=== PATIENT | female | born 1995 | race Caucasian/White ===

== ENCOUNTER 2018-06-28 23:04 | Inpatient (IN) | payer OTHER ==
[~2018-06-28] VITALS: Ht 162.6 cm; Wt 51.3 kg
[2018-06-28] MEDS ORDERED: HYDROMORPHONE 1 MG/1 ML DISP.SYRIN IV ONE (23:45)
[2018-06-28] MEDS ORDERED: ONDANSETRON 4 MG/2 ML VIAL IV ONE (23:45)
[2018-06-28] MEDS ORDERED: HYDROMORPHONE 1 MG/1 ML DISP.SYRIN ONE (23:48)
[2018-06-28] MEDS ORDERED: ONDANSETRON 4 MG/2 ML VIAL ONE (23:49)
[2018-06-28 23:57] LABS: BASOPHILS % (AUTO) 0.4 % (0.0-2.0); EOSINOPHILS # (AUTO) 0.1 K/uL (0.0-0.7); EOSINOPHILS % (AUTO) 1.3 % (0.0-7.0); HEMATOCRIT 36.8 % (31.2-41.9); HEMOGLOBIN 12.1 g/dL (10.9-14.3); LYMPHOCYTES # (AUTO) 1.4 K/uL (20.0-40.0); LYMPHOCYTES % (AUTO) 19.8 % (20.5-51.5); MEAN CORPUSCULAR HEMOGLOBIN 24.9 uug (24.7-32.8); MEAN CORPUSCULAR HGB CONC 33 g/dL (32.3-35.6); MEAN CORPUSCULAR VOLUME 75.7 fL (75.5-95.3); MONOCYTES # (AUTO) 0.7 K/uL (2.0-10.0); MONOCYTES % (AUTO) 9.4 % (0.0-11.0); NEUTROPHILS # (AUTO) 4.9 K/uL (1.8-8.9); NEUTROPHILS % (AUTO) 69.1 % (38.5-71.5); PLATELET COUNT (AUTO) 279 K/uL (179-408); RED BLOOD CELL COUNT(AUTO) 4.86 MIL/uL (3.63-4.92)
[2018-06-29 00:05] LABS: BILIRUBIN,DIRECT 0.1 mg/dL (0.0-0.2); BILIRUBIN,TOTAL 0.2 mg/dL (0.2-1.0); CREATININE 0.8 mg/dL (0.6-1.3); POTASSIUM 3.2 mmol/L (3.5-5.1); TOTAL PROTEIN, SERUM 7.5 g/dL (6.4-8.2)
[2018-06-29] MEDS ORDERED: IOHEXOL 300MG/ML 100 ML INFUS..BTL ONE (00:12)
[2018-06-29] MEDS ORDERED: SWABABLE VALVE TRANSFER SET EA MC ONE (00:12)
[2018-06-29] MEDS ORDERED: IV NORMAL SALINE 250 ML IV ONE (00:12)
[2018-06-29] MEDS ORDERED: DICYCLOMINE HCL LIQ 10 MG/5 ML UDC PO ONE (00:30)
[2018-06-29] MEDS ORDERED: MAG HYDROX/AL HYDROX/SIMETH 30 ML LIQUID UDC PO ONE (00:30)
[2018-06-29] MEDS ORDERED: FAMOTIDINE. 20 MG/2 ML VIAL IV ONE ×2 (00:30→00:41)
[2018-06-29] MEDS ORDERED: LIDOCAINE VISCUS 2% 15 ML UDC MM ONE (00:30)
[2018-06-29] MEDS ORDERED: DICYCLOMINE HCL LIQ 10 MG/5 ML UDC ONE (00:41)
[2018-06-29] MEDS ORDERED: MAG HYDROX/AL HYDROX/SIMETH 30 ML LIQUID UDC ONE (00:41)
[2018-06-29] MEDS ORDERED: LIDOCAINE VISCUS 2% 15 ML UDC ONE (00:41)
[2018-06-29] MEDS ORDERED: HYDROMORPHONE 1 MG/1 ML DISP.SYRIN ONE (00:42)
[2018-06-29] MEDS ORDERED: POTASSIUM CHLORIDE 20 MEQ TAB.PRT.SR PO ONE (00:45)
[2018-06-29] MEDS ORDERED: HYDROMORPHONE 1 MG/1 ML DISP.SYRIN IV ONE (00:45)
[2018-06-29 01:51] LABS: *BILIRUBIN,URIN NEGATIVE (NEGATIVE); *BLOOD, URINE NEGATIVE (NEGATIVE); *CLARITY,URINE CLEAR (CLEAR); *COLOR,URINE YELLOW (YELLOW); *KETONES,URINE NEGATIVE (NEGATIVE); *UROBILINOGEN,URINE 0.2 E.U./dl (NORMAL); LEUKOCYTE ESTERASE ,URINE NEGATIVE (NEGATIVE); NITRITE, URINE NEGATIVE (NEGATIVE); UGLUCOSE NEGATIVE (NEGATIVE)
[2018-06-29] MEDS ORDERED: IV D5W-0.45% NS +20 KCL 1,000 ML IV ONE (02:02)
[2018-06-29 02:08] LABS: BACTERIA,URINE MANY /HPF (NONE SEEN); RBC,URINE 0-3 /HPF (0-3); SQUAMOUS EPITHELIAL CELL,UR MANY /HPF (NONE SEEN); WBC,URINE 0-3 /HPF (0-3)
[2018-06-29] MEDS ORDERED: HYDROCODONE/APAP 5-325MG TABLET PO PRN (02:30)
[2018-06-29] MEDS ORDERED: MAGNESIUM HYDROXIDE 30 ML LIQUID UDC PO PRN (02:30)
[2018-06-29] MEDS ORDERED: ACETAMINOPHEN 325 MG TABLET PO PRN (02:30)
[2018-06-29] MEDS ORDERED: Z GUARD REMEDY PASTE 57 GM TUBE TOP PRN (02:30)
[2018-06-29] MEDS ORDERED: HYDR200T4 PO (02:31)
[2018-06-29] MEDS ORDERED: ARIP20TA4 PO (02:31)
[2018-06-29] MEDS ORDERED: CYPR4TAB44 PO (02:31)
[2018-06-29] MEDS ORDERED: PANT40TA2 PO (02:31)
[2018-06-29] MEDS ORDERED: GABA-534 PO (02:31)
[2018-06-29] MEDS ORDERED: SUCR1TAB PO (02:31)
[2018-06-29] MEDS ORDERED: FLUO40CA8 PO (02:31)
[2018-06-29] MEDS ORDERED: METR500T PO (02:31)
[2018-06-29] MEDS ORDERED: BUSP10TA3 PO (02:31)
[2018-06-29] MEDS ORDERED: LAMO25TA5 PO (02:31)
[2018-06-29] MEDS ORDERED: IV NS 1000 ML 1,000 ML IV PRN (03:00)
[2018-06-29 03:30] VITALS: BP 113/78
[2018-06-29] MEDS: MORPHINE SULFATE 4 MG/1 ML DISP.SYRIN IV PRN ×3 (03:41→22:28)
[2018-06-29 06:50] LABS: BASOPHILS % (AUTO) 1.1 % (0.0-2.0); EOSINOPHILS # (AUTO) 0.1 K/uL (0.0-0.7); EOSINOPHILS % (AUTO) 1.8 % (0.0-7.0); HEMATOCRIT 35.8 % (31.2-41.9); HEMOGLOBIN 11.9 g/dL (10.9-14.3); LYMPHOCYTES # (AUTO) 1.5 K/uL (20.0-40.0); MEAN CORPUSCULAR HEMOGLOBIN 25.1 uug (24.7-32.8); MEAN CORPUSCULAR HGB CONC 33 g/dL (32.3-35.6); MEAN CORPUSCULAR VOLUME 75.7 fL (75.5-95.3); MONOCYTES # (AUTO) 0.5 K/uL (2.0-10.0); MONOCYTES % (AUTO) 11.4 % (0.0-11.0); NEUTROPHILS # (AUTO) 2.5 K/uL (1.8-8.9); NEUTROPHILS % (AUTO) 53.7 % (38.5-71.5); PLATELET COUNT (AUTO) 269 K/uL (179-408); RED BLOOD CELL COUNT(AUTO) 4.73 MIL/uL (3.63-4.92); WHITE BLOOD COUNT (AUTO) 4.7 K/uL (3.8-11.8)
[2018-06-29 06:53] LABS: CREATININE 0.7 mg/dL (0.6-1.3); POTASSIUM 3.7 mmol/L (3.5-5.1)
[2018-06-29] MEDS ORDERED: HYDROMORPHONE 1 MG/1 ML DISP.SYRIN IV PRN (07:30)
[2018-06-29] MEDS: IV NS 1000 ML 1,000 ML IV PRN ×2 (07:35→22:24)
[2018-06-29] MEDS: NICOTINE 14 MG/24HR PATCH TD SCH (08:35)
[2018-06-29 11:18] VITALS: BP 111/67
[2018-06-29] MEDS: busPIRone 10 MG TABLET PO SCH ×2 (12:16→16:02)
[2018-06-29 15:23] VITALS: BP 107/62
[2018-06-29] MEDS: METRONIDAZOLE 500 MG TABLET PO SCH (16:02)
[2018-06-29] MEDS: SUCRALFATE 1 G TABLET PO SCH (16:02)
[2018-06-29] MEDS: GABAPENTIN 300 MG CAPSULE PO SCH (16:02)
[2018-06-29] MEDS: ONDANSETRON 4 MG/2 ML VIAL IV PRN ×2 (17:09→22:23)
[2018-06-29 20:00] VITALS: BP 108/61
[2018-06-29] MEDS ORDERED: CYPROHEPTADINE HCL 4 MG TABLET PO SCH (21:00)
[2018-06-29] MEDS ORDERED: FLEET ENEMA 133 ML BOTTLE RC SCH ×2 (21:00→22:00)
[2018-06-29] MEDS ORDERED: FLEET ENEMA 133 ML BOTTLE RC ONE ×2 (22:00→23:00)
[2018-06-30 05:29] VITALS: BP 111/51
[2018-06-30 06:04] LABS: BASOPHILS % (AUTO) 0.7 % (0.0-2.0); HEMATOCRIT 33.7 % (31.2-41.9); LYMPHOCYTES # (AUTO) 0.7 K/uL (20.0-40.0); LYMPHOCYTES % (AUTO) 19.2 % (20.5-51.5); MEAN CORPUSCULAR HEMOGLOBIN 24.6 uug (24.7-32.8); MEAN CORPUSCULAR HGB CONC 33 g/dL (32.3-35.6); MEAN CORPUSCULAR VOLUME 75.1 fL (75.5-95.3); MONOCYTES # (AUTO) 0.5 K/uL (2.0-10.0); MONOCYTES % (AUTO) 13.8 % (0.0-11.0); NEUTROPHILS # (AUTO) 2.4 K/uL (1.8-8.9); NEUTROPHILS % (AUTO) 65.3 % (38.5-71.5); PLATELET COUNT (AUTO) 225 K/uL (179-408); RED BLOOD CELL COUNT(AUTO) 4.48 MIL/uL (3.63-4.92); WHITE BLOOD COUNT (AUTO) 3.6 K/uL (3.8-11.8)
[2018-06-30 06:18] LABS: CREATININE 0.7 mg/dL (0.6-1.3); MAGNESIUM 1.7 mg/dL (1.8-2.4); PHOSPHOROUS 4.1 mg/dL (2.5-4.9); POTASSIUM 4.2 mmol/L (3.5-5.1)
[2018-06-30 06:44] LABS: THYROID STIMULATING HORMONE 0.524 mIU/mL (0.358-3.740)
[2018-06-30] MEDS: SUCRALFATE 1 G TABLET PO SCH (07:30)
[2018-06-30] MEDS ORDERED: DIATR MEGLU/DIATRIZOATE SODIUM 30 ML SOLUTION ONE (08:01)
[2018-06-30] MEDS: NICOTINE 14 MG/24HR PATCH TD SCH (08:57)
[2018-06-30] MEDS ORDERED: HYDROXYCHLOROQUINE SULFATE 200 MG TABLET PO SCH (09:00)
[2018-06-30] MEDS ORDERED: LAMOTRIGINE 25 MG TABLET PO SCH (09:00)
[2018-06-30] MEDS ORDERED: FLUOXETINE HCL 20 MG CAPSULE PO SCH (09:00)
[2018-06-30] MEDS ORDERED: Medication Not On Formulary EA (Aripiprazole (Abilify) 20 MG) PO SCH (09:00)
[2018-06-30] MEDS ORDERED: ARIPIPRAZOLE 10 MG TABLET PO SCH (09:00)
[2018-06-30] MEDS ORDERED: FLUOXETINE HCL 80 MG PO SCH (09:00)
[2018-06-30] MEDS: GABAPENTIN 300 MG CAPSULE PO SCH (10:37)
[2018-06-30] MEDS: busPIRone 10 MG TABLET PO SCH ×2 (10:37→13:14)
[2018-06-30] MEDS: METRONIDAZOLE 500 MG TABLET PO SCH (10:37)
[2018-06-30] MEDS: MORPHINE SULFATE 4 MG/1 ML DISP.SYRIN IV PRN (10:38)
[2018-06-30] MEDS: ONDANSETRON 4 MG/2 ML VIAL IV PRN (10:50)
[2018-06-30] MEDS ORDERED: MAGNESIUM OXIDE 400 MG TABLET PO ONE (11:30)
[2018-06-30 11:42] VITALS: BP 102/60
[2018-06-30 15:49] VITALS: BP 103/60
[2018-06-30] MEDS ORDERED: CYPROHEPTADINE 4 MG PO SCH (21:00)
[2018-07-01] MEDS ORDERED: ONDA4TAB8 PO (21:47)
[2018-07-01] MEDS ORDERED: GABA-534 PO (21:47)
[2018-07-01] MEDS ORDERED: CALO41.32 PO (21:47)
[2018-07-01] MEDS ORDERED: BUSP10TA3 PO (21:47)
== END 2018-06-30 17:05 | disposition other institution (70) | DRG 394 ==
LOC: ER 23:05 → MED 06-29 02:25
PROVIDERS: ADMIT Nurse Practitioner Acute Care; ATTEND Nurse Practitioner Acute Care
DX: T18.3XXA Foreign body in small intestine, initial encounter (principal); K56.600 Partial intestinal obstruction, unspecified as to cause; Z68.1 Body mass index [BMI] 19.9 or less, adult; F50.00 Anorexia nervosa, unspecified; B37.49 Other urogenital candidiasis; X58.XXXA Exposure to other specified factors, initial encounter; Y92.238 Other place in hospital as the place of occurrence of the external cause; N76.0 Acute vaginitis; B96.89 Other specified bacterial agents as the cause of diseases classified elsewhere; R33.9 Retention of urine, unspecified; F17.210 Nicotine dependence, cigarettes, uncomplicated; F43.10 Post-traumatic stress disorder, unspecified; M32.9 Systemic lupus erythematosus, unspecified; Z91.5 Personal history of self-harm; K29.70 Gastritis, unspecified, without bleeding
CPT/HCPCS: 36415; 76856; 83690; 83735; 84100; 84443; 85025; 85730; A4663; G0378; J1170; J2270; J2405; J3490; J7030; J7050; Q9963; Q9967

== ENCOUNTER 2018-07-01 21:32 | Emergency (ER) | payer OTHER ==
[~2018-07-01] VITALS: Ht 165.1 cm; Wt 50.8 kg
[~2018-07-01 21:32] MED LIST: ARIP20TA4 PO; BUSP10TA3 PO; CYPR4TAB44 PO; FLUO40CA8 PO; GABA-534 PO; HYDR200T4 PO; LAMO25TA5 PO; METR500T PO; PANT40TA2 PO; SUCR1TAB PO
--- NOTE | 2018-07-01 21:40 | NUR ---
Patient walkeed into ER c/o abdominal pain x1hr prior to arrival.
[2018-07-01] MEDS ORDERED: BUSP10TA3 PO (21:47)
[2018-07-01] MEDS ORDERED: GABA-534 PO (21:47)
[2018-07-01] MEDS ORDERED: ONDA4TAB8 PO (21:47)
[2018-07-01] MEDS ORDERED: CALO41.32 PO (21:47)
[2018-07-01] MEDS: MORPHINE SULFATE 4 MG/1 ML DISP.SYRIN IM ONE ×2 (22:06→22:07)
[2018-07-01] MEDS ORDERED: MORPHINE SULFATE 4 MG/1 ML DISP.SYRIN ONE (22:06)
[2018-07-01 22:13] LABS: BASOPHILS % (AUTO) 0.4 % (0.0-2.0); EOSINOPHILS # (AUTO) 0.1 K/uL (0.0-0.7); EOSINOPHILS % (AUTO) 2.2 % (0.0-7.0); HEMATOCRIT 35.1 % (31.2-41.9); HEMOGLOBIN 11.7 g/dL (10.9-14.3); LYMPHOCYTES # (AUTO) 1.3 K/uL (20.0-40.0); LYMPHOCYTES % (AUTO) 20.7 % (20.5-51.5); MEAN CORPUSCULAR HEMOGLOBIN 25.3 uug (24.7-32.8); MEAN CORPUSCULAR HGB CONC 33 g/dL (32.3-35.6); MEAN CORPUSCULAR VOLUME 76.2 fL (75.5-95.3); MONOCYTES # (AUTO) 0.8 K/uL (2.0-10.0); MONOCYTES % (AUTO) 12.2 % (0.0-11.0); NEUTROPHILS # (AUTO) 4.1 K/uL (1.8-8.9); NEUTROPHILS % (AUTO) 64.5 % (38.5-71.5); PLATELET COUNT (AUTO) 272 K/uL (179-408); WHITE BLOOD COUNT (AUTO) 6.4 K/uL (3.8-11.8)
[2018-07-01 22:24] LABS: BILIRUBIN,DIRECT 0.1 mg/dL (0.0-0.2); BILIRUBIN,TOTAL 0.2 mg/dL (0.2-1.0); CREATININE 0.8 mg/dL (0.6-1.3); POTASSIUM 3.9 mmol/L (3.5-5.1); TOTAL PROTEIN, SERUM 6.6 g/dL (6.4-8.2)
--- NOTE | 2018-07-01 23:17 | NUR ---
Patient discharged to home in stable conditon. Written and verbal after care instructions given. Patient verbalizes understanding of instructions. Walked out of ER with no distress noted
[2018-07-01 23:18] VITALS: BP 115/88
== END 2018-07-01 23:19 | disposition home or self-care (01) ==
LOC: ER 21:35
DX: R10.10 Upper abdominal pain, unspecified (principal); F17.200 Nicotine dependence, unspecified, uncomplicated; Z79.899 Other long term (current) drug therapy
CPT/HCPCS: 36415; 80048; 80076; 83690; 84702; 85025; 96372; 99283; J2270; A4663

== ENCOUNTER 2019-12-08 19:33 | Emergency (ER) | payer BC, OTHER ==
[~2019-12-08] VITALS: Ht 165.1 cm; Wt 49.0 kg
[~2019-12-08 19:33] MED LIST changes: +CALO41.32 PO; -METR500T PO; +ONDA4TAB8 PO
--- NOTE | 2019-12-08 20:18 | NUR ---
Informed pt regarding need for test prior to medication administration. Pt endorses that there is no possibility for her to be at this time, notified Dr. Cantu.
[2019-12-08] MEDS ORDERED: KETOROLAC TROMETHAMINE 60 MG INJ IM ONE ×2 (20:23→20:30)
[2019-12-08 20:32] VITALS: BP 124/77
--- NOTE | 2019-12-08 20:32 | NUR ---
Patient discharged to home in stable condition. Written and verbal after care instructions given. Patient verbalizes understanding of instructions. Stressed follow up or return to ER for worsening s/s. Pt appears in no distress. Vitals stable.
== END 2019-12-08 20:41 | disposition home or self-care (01) ==
LOC: ER 19:35
DX: N80.9 Endometriosis, unspecified (principal); M32.9 Systemic lupus erythematosus, unspecified; Z79.899 Other long term (current) drug therapy; Z87.19 Personal history of other diseases of the digestive system; F17.200 Nicotine dependence, unspecified, uncomplicated; F43.10 Post-traumatic stress disorder, unspecified
CPT/HCPCS: 96372; 99283; J1885; A4663